=== PATIENT | female | born 1940 | race Caucasian/White ===

== ENCOUNTER → 2017-10-07 | Day surgery (SDC) | payer OTHER ==
[2017-10-05 11:22] VITALS: Ht 167.6 cm; Wt 85.9 kg
[~2017-10-07] VITALS: Ht 167.6 cm; Wt 85.9 kg
[~2017-10-07] MED LIST: 500ML BSS 0.3ML EPI 1:1000PF IRRIG ONE; ACETAMINOPHEN 325 MG TAB PO PRN; AMVISC PLUS 0.8ML SYRINGE INT OCU ONE; ASPI81TA28 PO; ATROPINE SULFATE 0.1 MG/ML 5ML SYR IV PRN; BSS FLUSH ONE; ENDOCOAT 0.85ML SYRINGE INT OCU ONE; EpHEDrine SULFATE INJ 50 MG/ML AMP IV PRN; EpINEphrine INJ 1MG/ML AMP 1 MG/ML AMP ONE; LACTATED RINGER'S 1000ML 500 ML IV SCH; LIDOCAINE 4% OP SOLN DROP CHARGE ONE; LIDOCAINE 4% OP SOLN DROP CHARGE OPL SCH; LIDOCAINE HCL 1% MPF 2 ML VIAL ONE; LISI-461 PO; LOVA40TA4 PO; MIDAZOLAM HCL 1 MG/ML 2ML VIAL ONE; MIX: 4ML BSS 1ML EPI 1:1000 PF TOP ONE; MOXIFLOXACIN OPH SOLN PER DROP CHARGE ONE; POVIDONE-IODINE OP SOLN 30 ML BTL ONE; PROPARACAINE 0.5% OP SOLN PER DROP CHARGE OPL SCH; TOBRAMYCIN/DEXAMETHASONE OPH OINT PER APPLN CHARGE ONE
[2017-10-07] MEDS: TROPICAMIDE 1% OP SOLN PER DROP CHARGE OPL SCH ×3 (11:14→11:21)
[2017-10-07] MEDS: PHENYLEPHRINE HCL 2.5% OP SOLN PER DROP CHARGE OPL SCH ×3 (11:14→11:20)
[2017-10-07] MEDS: CYCLOPENTOLATE HCL 1% OP SOLN PER DROP CHARGE OPL SCH ×3 (11:15→11:22)
[2017-10-07] MEDS: MOXIFLOXACIN OPH SOLN PER DROP CHARGE OPL SCH ×3 (11:16→11:23)
--- NOTE | 2017-10-07 11:22 | History & Physical Bridge - SC ---
H&P Re-Evaluation Bridge Note: I have examined the patient, reviewed the History & Physical and in the interval since the performance of the History & Physical I have noted the following changes of clinical significance: No changes noted
--- NOTE | 2017-10-07 12:33 | [facility] Post Operative Brief Note ---
Immediate Operative Summary Operative Date Oct 07, 2017. Pre-Operative Diagnosis Cataract Left Eye Post-Operative Diagnosis Same Procedure(s) Performed Left Cataract Phacoemulsification With Intraocular Lens Implant Surgeon Dr. Funes [employer] Professional Surgeon(s) None Estimated Blood Loss 0 Findings left cataract Specimens None Complication(s) None Disposition
--- NOTE | 2017-10-07 12:34 | [facility] Operative Report ---
Operative Report Date of Service Oct 07, 2017. Operative Report DATE OF OPERATION: 10/07/17 PREOPERATIVE DIAGNOSIS: Senile nuclear cataract, left eye POSTOPERATIVE DIAGNOSIS: Senile nuclear cataract, left eye PROCEDURE PERFORMED: Phacoemulsification with intraocular lens implantation, left eye SURGEON: Dr. Alofnso Funes ANESTHESIA: Topical with 1% intracameral lidocaine and monitored anesthesia care COMPLICATIONS: None DESCRIPTION OF PROCEDURE: After positively identifying the patient both verbally and by wristband in the preoperative area, the left eye was marked as the operative eye. The patient was then brought back to the operating room by the anesthesia and nursing staff where they were given a drop of Lidocaine and betadine into the operative eye. They were then sterilely prepped and draped in the standard fashion typical for ophthalmic surgery. Steri-strips were placed along the upper eyelids to keep the lashes back, and a lid speculum was placed into the operative eye. At this point, a documented time out was performed with members of the ophthalmology, nursing, and anesthesia staffs all agreeing upon the correct patient, correct location for surgery, correct procedure, and correct type and power of intraocular lens to be implanted. The microscope was then swung into position. First, a paracentesis wound was made using a sideport blade. Then, in sequence, 1% preservative-free lidocaine followed by Endocoat viscoelastic was injected into the anterior chamber. Next , the main incision was made with a keratome blade in triplanar fashion. A sharp cystotome was introduced into the eye and used to create a tear in the anterior capsule, which was directed into a continuous curvilinear capsulorrhexis using Utrata forceps. Hydrodissection was then performed with BSS on a flat-tip cannula. Next, the phacoemulsification handpiece was introduced into the eye and used to remove the nucleus in a [id number] fashion. This was done without complication and then the irrigation-aspiration handpiece was introduced into the eye and used to remove all remaining cortical and epinuclear material. Amvisc was then injected into the anterior chamber as well as into the capsular bag and using the lens injector system, an MX60 25.0 D lens, serial number [id number], and expiration date 05/2020 was injected into the capsular bag and rotated into the correct position. Next, the irrigation- aspiration handpiece was used to remove all remaining Amvisc. BSS was used to hydrate the main wound, and then BSS was injected into the paracentesis site to reach physiologic pressure and then the main wound was checked and found to be watertight. The patient was given drops of Vigamox and Tobradex ointment into the operative eye, and then the surrounding area was cleaned and dried. A clear plastic shield was placed over the eye and the patient was then sat up and taken from the operating room by the anesthesia staff having tolerated the procedure well and suffering no complications. DISPOSITION: The patient was returned to the recovery room in stable condition. I attest to the content of the Intraoperative Record and any orders documented therein. Any exceptions are noted below.
[2017-10-07 12:35] VITALS: TEMP 36.5
--- NOTE | 2017-10-07 12:35 | Discharge Instructions-SurgCtr ---
Discharge Instructions Date of Service Oct 07, 2017. Visit Reason for Visit: Cataract Left Eye Discharge Discharge Diagnosis / Problem: left cataract Discharge Goals Goal(s): Decrease discomfort, Improve function Activity Recommendations Activity Limitations: as noted below Anesthesia . Post Anesthesia Instructions: If you have had General Anesthesia or IV Sedation: * Do not drive today. * Resume driving when surgeon permits. * Do not make important decisions or sign legal documents today. * Call surgeon for: 1. Temperature elevations greater than 101 degrees F. 2. Uncontrollable pain. 3. Excessive bleeding. 4. Persistent nausea and vomiting. 5. Medication intolerance (nausea, vomiting or rash). * For nausea and vomiting use only clear liquids such as: tea, soda, bouillon until nausea subsides, then gradually increase diet as tolerated. * If you have any concerns or questions, call your surgeon's office. If physician is unavailable and it is an emergency, call 911 or go to the nearest emergency room. . Instructions / Follow-Up Instructions / Follow-Up ACTIVITY RECOMMENDATIONS: * Light activities. * You may walk outside, read, watch television. * You may notice redness on the white part of the eye and some blurry vision - this is normal. MEDICATIONS: Resume previous medications unless instructed otherwise by your surgeon. Start all eye drops at 2:30 pm today: * Eye drops (today): Prednisone - one drop in operative eye every 2 hours while awake Ofloxacin- one drop in operative eye every 2 hours while awake Ilevro - one drop in operative eye daily SPECIAL CARE INSTRUCTIONS: * Tape plastic shield over eye to sleep at night. Call your doctor at with any concerns or problems. FOLLOW UP VISIT: Follow-up with Dr Funes at [facility] as scheduled. Diet Recommendations Home Diet: no limitations Procedures Procedures Performed: Left Cataract Phacoemulsification With Intraocular Lens Implant Pending Studies Studies pending at discharge: no Medical Emergencies . Who to Call and When: Medical Emergencies: If at any time you feel your situation is an emergency, please call 911 immediately. . Non-Emergent Contact Non-Emergency issues call your: Surgeon . . "Provider Documentation" section prepared by Alfonso Funes. .
[2017-10-07 13:04] VITALS: BP 159/83; PULSE 56; O2SAT 94
--- NOTE | 2017-10-07 13:17 | Anesthesiology Progress Note ---
Anesthesia Post Op Note Date & Time Oct 07, 2017 at 13:16 Vital Signs Pain Intensity: 0 Vital Signs Past 12 Hours Date Time Temp Pulse Resp B/P (MAP) Pulse Ox O2 Delivery O2 Flow Rate FiO2 10/07/17 13:04 56 18 159/83 (108) 94 Room Air 10/07/17 12:35 36.5 66 16 158/82 (107) 97 Room Air 10/07/17 11:09 36.4 75 16 170/91 (117) 98 Room Air Notes Mental Status: alert / awake / arousable, participated in evaluation Nausea / Vomiting: adequately controlled Pain: adequately controlled Airway Patency, RR, SpO2: stable & adequate BP & HR: stable & adequate Hydration State: stable & adequate Anesthetic Complications: no major complications apparent
== END | disposition home or self-care (01) ==
LOC: X.SURG 10:59
PROVIDERS: ATTEND Ophthalmology
DX: H25.12 Age-related nuclear cataract, left eye (principal); I10 Essential (primary) hypertension; E78.5 Hyperlipidemia, unspecified; E66.9 Obesity, unspecified; Z96.651 Presence of right artificial knee joint

== ENCOUNTER → 2017-10-21 | Day surgery (SDC) | payer OTHER ==
[2017-10-16 09:55] VITALS: Ht 167.6 cm; Wt 85.9 kg
[~2017-10-21] VITALS: Ht 167.6 cm; Wt 85.9 kg
[~2017-10-21] MED LIST changes: +LABETALOL HCL IV 5 MG/ML 20ML IV ONE; -LIDOCAINE 4% OP SOLN DROP CHARGE OPL SCH; +LIDOCAINE 4% OP SOLN DROP CHARGE OPR SCH; -PROPARACAINE 0.5% OP SOLN PER DROP CHARGE OPL SCH; +PROPARACAINE 0.5% OP SOLN PER DROP CHARGE OPR SCH
[2017-10-21] MEDS: PHENYLEPHRINE HCL 2.5% OP SOLN PER DROP CHARGE OPR SCH ×3 (06:37→06:45)
[2017-10-21] MEDS: TROPICAMIDE 1% OP SOLN PER DROP CHARGE OPR SCH ×3 (06:38→06:48)
[2017-10-21] MEDS: CYCLOPENTOLATE HCL 1% OP SOLN PER DROP CHARGE OPR SCH ×3 (06:38→06:48)
[2017-10-21] MEDS: MOXIFLOXACIN OPH SOLN PER DROP CHARGE OPR SCH ×3 (06:39→06:49)
--- NOTE | 2017-10-21 07:29 | [facility] Post Operative Brief Note ---
Immediate Operative Summary Operative Date Oct 21, 2017. Pre-Operative Diagnosis Cataract Right Eye Post-Operative Diagnosis Same Procedure(s) Performed Right Cataract Phacoemulsification With Intraocular Lens Implant Surgeon Dr. Funes Agent Contract Clerk Surgeon(s) None Estimated Blood Loss None Findings right cataract Specimens None Complication(s) None Disposition
[2017-10-21 07:30] VITALS: TEMP 37
--- NOTE | 2017-10-21 07:30 | [facility] Operative Report ---
Operative Report Date of Service Oct 21, 2017. Operative Report DATE OF OPERATION: 10/21/17 PREOPERATIVE DIAGNOSIS: Senile nuclear cataract, right eye POSTOPERATIVE DIAGNOSIS: Senile nuclear cataract, right eye PROCEDURE PERFORMED: Phacoemulsification with intraocular lens implantation, right eye SURGEON: Dr. Alfonso Funes ANESTHESIA: Topical with 1% intracameral lidocaine and monitored anesthesia care COMPLICATIONS: None DESCRIPTION OF PROCEDURE: After positively identifying the patient both verbally and by wristband in the preoperative area, the right eye was marked as the operative eye. The patient was then brought back to the operating room by the anesthesia and nursing staff where they were given a drop of Lidocaine and betadine into the operative eye. They were then sterilely prepped and draped in the standard fashion typical for ophthalmic surgery. Steri-strips were placed along the upper eyelids to keep the lashes back, and a lid speculum was placed into the operative eye. At this point, a documented time out was performed with members of the ophthalmology, nursing, and anesthesia staffs all agreeing upon the correct patient, correct location for surgery, correct procedure, and correct type and power of intraocular lens to be implanted. The microscope was then swung into position. First, a paracentesis wound was made using a sideport blade. Then, in sequence, 1% preservative-free lidocaine followed by Endocoat viscoelastic was injected into the anterior chamber. Next , the main incision was made with a keratome blade in triplanar fashion. A sharp cystotome was introduced into the eye and used to create a tear in the anterior capsule, which was directed into a continuous curvilinear capsulorrhexis using Utrata forceps. Hydrodissection was then performed with BSS on a flat-tip cannula. Next, the phacoemulsification handpiece was introduced into the eye and used to remove the nucleus in a [id number] fashion. This was done without complication and then the irrigation-aspiration handpiece was introduced into the eye and used to remove all remaining cortical and epinuclear material. Amvisc was then injected into the anterior chamber as well as into the capsular bag and using the lens injector system, an MX60 25.5 D lens, serial number [id number], and expiration date 12/2018 was injected into the capsular bag and rotated into the correct position. Next, the irrigation- aspiration handpiece was used to remove all remaining Amvisc. BSS was used to hydrate the main wound, and then BSS was injected into the paracentesis site to reach physiologic pressure and then the main wound was checked and found to be watertight. The patient was given drops of Vigamox and Tobradex ointment into the operative eye, and then the surrounding area was cleaned and dried. A clear plastic shield was placed over the eye and the patient was then sat up and taken from the operating room by the anesthesia staff having tolerated the procedure well and suffering no complications. DISPOSITION: The patient was returned to the recovery room in stable condition. I attest to the content of the Intraoperative Record and any orders documented therein. Any exceptions are noted below.
--- NOTE | 2017-10-21 07:31 | Discharge Instructions-SurgCtr ---
Discharge Instructions Date of Service Oct 21, 2017. Visit Reason for Visit: Cataract Right Eye Discharge Discharge Diagnosis / Problem: right cataract Discharge Goals Goal(s): Decrease discomfort, Improve function Activity Recommendations Activity Limitations: as noted below Anesthesia . Post Anesthesia Instructions: If you have had General Anesthesia or IV Sedation: * Do not drive today. * Resume driving when surgeon permits. * Do not make important decisions or sign legal documents today. * Call surgeon for: 1. Temperature elevations greater than 101 degrees F. 2. Uncontrollable pain. 3. Excessive bleeding. 4. Persistent nausea and vomiting. 5. Medication intolerance (nausea, vomiting or rash). * For nausea and vomiting use only clear liquids such as: tea, soda, bouillon until nausea subsides, then gradually increase diet as tolerated. * If you have any concerns or questions, call your surgeon's office. If physician is unavailable and it is an emergency, call 911 or go to the nearest emergency room. . Instructions / Follow-Up Instructions / Follow-Up ACTIVITY RECOMMENDATIONS: * Light activities. * You may walk outside, read, watch television. * You may notice redness on the white part of the eye and some blurry vision - this is normal. MEDICATIONS: Resume previous medications unless instructed otherwise by your surgeon. Start all eye drops at 9:30 am today: * Eye drops (today): Prednisone - one drop in operative eye every 2 hours while awake Ofloxacin - one drop in operative eye every 2 hours while awake Ilevro - one drop in operative eye daily SPECIAL CARE INSTRUCTIONS: * Tape plastic shield over eye to sleep at night. Call your doctor at with any concerns or problems. FOLLOW UP VISIT: Follow-up with Dr Funes at [facility] as scheduled. Diet Recommendations Home Diet: no limitations Procedures Procedures Performed: Right Cataract Phacoemulsification With Intraocular Lens Implant Pending Studies Studies pending at discharge: no Medical Emergencies . Who to Call and When: Medical Emergencies: If at any time you feel your situation is an emergency, please call 911 immediately. . Non-Emergent Contact Non-Emergency issues call your: Surgeon . . "Provider Documentation" section prepared by Alfonso Funes. .
--- NOTE | 2017-10-21 07:56 | Anesthesia Progress Nt - [facility] ---
Anesthesia Post Op Note Date & Time Oct 21, 2017 at 07:55 Vital Signs Pain Intensity: 4.0 Vital Signs Past 12 Hours Date Time Temp Pulse Resp B/P (MAP) Pulse Ox O2 Delivery O2 Flow Rate FiO2 10/21/17 07:30 37.0 73 16 176/83 (114) 95 Room Air 10/21/17 06:29 36.7 70 16 173/76 (108) 95 Room Air Notes Mental Status: alert / awake / arousable, participated in evaluation Pt Amnestic to Procedure: Yes Nausea / Vomiting: adequately controlled Pain: adequately controlled Airway Patency, RR, SpO2: stable & adequate BP & HR: stable & adequate Hydration State: stable & adequate Anesthetic Complications: no major complications apparent
[2017-10-21 08:03] VITALS: BP 149/70; PULSE 58; O2SAT 97
== END | disposition home or self-care (01) ==
LOC: X.SURG 06:12
PROVIDERS: ATTEND Ophthalmology
DX: H25.11 Age-related nuclear cataract, right eye (principal); E78.5 Hyperlipidemia, unspecified; Z96.659 Presence of unspecified artificial knee joint; Z83.518 Family history of other specified eye disorder; Z87.891 Personal history of nicotine dependence; Z79.82 Long term (current) use of aspirin; Z98.42 Cataract extraction status, left eye

== ENCOUNTER 2021-10-13 17:44 | Inpatient (IN) ==
[2021-10-13] MEDS ORDERED: SODIUM CHLORIDE 0.9% 1000ML 1,000 ML IV STA (18:09)
--- NOTE | 2021-10-13 18:28 | Emergency Department Note ---
Impression & Plan Acute on chronic renal failure, COVID-19, Weakness generalized, Fall ED Provider Note CHIEF COMPLAINT: Weakness, fall HISTORY OF PRESENT ILLNESS: This 81 yo female patient presents to the emergency department with c/o weakness for the last 3-4 days. 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 Her son heard the fall but she laid on the floor for 2 hours per her request. He was able to get up off of the floor and into bed however she felt nauseated and did vomit. Patient states she lives at home with her son and her grandson does spend some time there. He has been feeling ill recently with a cough and upper respiratory illness. Several family members are currently being tested for Covid. Patient has had 2 vaccines, she was not aware of her third shot. Patient denies any urinary symptoms and states the vomiting has resolved. She denies chest pain, shortness of breath. She has not been eating or drinking much fluid recently. Patient denies any head injury during the fall. REVIEW OF SYSTEMS: A review of systems was performed with positives and perti nent negatives listed in the history of present illness. 10 systems were reviewed and are otherwise negative. ALLERGIES: see below MEDICATIONS: see below PMH: see below SOCIAL HISTORY: see below DDx: Infection, dehydration, metabolic abnormality, hypo/hyperglycemia, electrolyte disturbance, anemia, hypoxia, cardiac sources, intracerebral event, toxicologic, neurologic, as well as other pathologies. PHYSICAL EXAM: Vital signs reviewed. General: 81-year-old female in no significant distress. HEENT: No scleral icterus, PERRLA, neck supple. Atraumatic. Cardiovascular: Regular rate and rhythm, no extra sounds. Pulmonary: Coarse breath sounds to auscultation bilaterally, normal work of breathing. Dry cough. Abdomen: Soft, nontender, nondistended, positive bowel sounds. Musculoskeletal: Atraumatic, no peripheral edema. No tenderness palpation over the cervical spine. Neurologic: Patient awake alert and oriented x 3, speech is clear Skin: Warm, dry, no rash EMERGENCY DEPARTMENT COURSE/MDM: No significant distress. IV access was obtained and laboratory work was drawn. Patient was placed on a front desk monitor and noted to be in a normal sinus rhythm. Patient was hydrated with normal saline solution. Chest x-ray was performed and is significant for an elevated right hemidiaphragm, negative for pulmonary infiltrate or failure. Patient has tested positive for COVID-19 and appears to have a worsening renal failure. I suspect she has been ill with Covid for several days and has been worsening, poor p.o. intake. Patient will be admitted to the hospitalist service for further evaluation and management. Patient is aware of the plan and agrees. MONITORING: An order for cardiac monitoring was placed and the patient is noted to be in a NSR at 74 beats per minute. RADIOLOGY: See below EKG: NSR at 68 bpm. LBBB, prolonged QTc at 548. T wave abnl. no PVC, no PAC. DISPOSITION: admit Past Med/Surg History Medical History (Updated 10/20/21 @ 15:37 by Meg Ball MD) Acute worsening of stage 3 chronic kidney disease Anemia Cardiomyopathy Cervical strain Closed head injury Elevated troponin Hip pain Hyperlipidemia Hypertension Social History Smoking Status: Former smoker Second Hand Exposure: Yes; Hx Alcohol Use: No Hx Substance Use: No Preferred Language: Mohawk Communication Ability: Effective [employer] Security Administrator Required: No Beliefs That Will Affect Care: None marital status: / Current Living Situation: Family Current Living Situation Comment: lives with son Feels Safe at Home: Yes Assistive Devices: Cane Allergies Allergies Allergy/AdvReac Type Severity Reaction Status Date / Time No Known Allergies Allergy Unknown Verified 10/13/21 18:42 Home Meds Home Medications Medication Instructions Recorded Confirmed aspirin 81 mg tablet,delayed 81 mg PO DAILY 10/13/21 10/13/21 release (Aspirin Low Dose) lisinopril 10 1 tab PO DAILY 10/13/21 10/13/21 mg-hydrochlorothiazide 12.5 mg tablet lovastatin 40 mg tablet 40 mg PO DAILY 10/13/21 10/13/21 potassium citrate 10 mEq (1,080 20 meq PO DAILY 10/13/21 10/13/21 mg) tablet,extended release Results & Data (ED) Vital Signs Vital Signs - 24 hr 10/13/21 18:05 Temperature 36.8 C Temperature Source Oral Pulse Rate 74 Pulse Rate [Apical] 74 Pulse Rhythm Regular Pulse Strength Normal Respiratory Rate 29 H Respiratory Effort / Characteristics Labored Respiratory Depth Normal Respiratory Pattern Regular Blood Pressure 179/87 H Blood Pressure [Right Arm] 179/87 H Blood Pressure Mean 117 Blood Pressure Mean [Right Arm] 117 Blood Pressure Position Sitting Blood Pressure Position [Right Arm] Sitting Pulse Oximetry 97 Oxygen Delivery Method Room Air Sepsis Recent Fever Within 48 Hours No Sepsis New/Unexplained Change in Mental Status No Sepsis Action Taken by Nursing No Action Required Home Medications Current Medication List: was personally reviewed by me Laboratory Data Attestation: I reviewed the patient's lab results. Result diagrams: 10/15/21 05:57 10/15/21 05:57 Lab Results 10/13/21 10/13/21 10/13/21 Range/Units 18:15 18:15 18:40 WBC 3.26 L (4.8-10.8) K/uL RBC 4.07 L (4.2-5.4) M/uL Hgb 12.2 (12.0-16.0) g/dL Hct 36.0 L (37-47) % MCV 88.5 (80-100) fL MCH 30.0 (25-34) pg MCHC 33.9 (32-36) g/dL RDW Std Deviation 41.8 (36.4-46.3) fL RDW Coeff of Samra 12.9 (11.5-14.5) % Plt Count 221 (130-400) K/uL MPV 10.2 (7.4-10.4) fL Immature Gran % (Auto) 0.0 % Neut % (Auto) 42.7 % Lymph % (Auto) 41.4 % [place] % (Auto) 14.4 % Eos % (Auto) 1.2 % Baso % (Auto) 0.3 % Neut # (Auto) 1.39 L (1.4-6.5) K/uL Lymph # (Auto) 1.35 (1.2-3.4) K/uL [place] # (Auto) 0.47 (0.11-0.59) K/uL Eos # (Auto) 0.04 (0-0.5) K/uL Baso # (Auto) 0.01 (0-0.2) K/uL Immature Gran # (Auto) 0.00 (0.00-0.02) K/uL Sodium 136 (136-145) mmol/L Potassium 4.4 (3.5-5.1) mmol/L Chloride 101 (98-107) mmol/L Carbon Dioxide 25 (21-32) mmol/L Anion Gap 10.0 (3-11) BUN 38 H (7-18) mg/dl Creatinine 1.86 H (0.6-1.2) mg/dl Est Cr Clr Drug Dosing 26.0 ml/min Est GFR ( Amer) 29.1 ml/min Est GFR (Non-Af Amer) 25.1 ml/min BUN/Creatinine Ratio 20.5 H (10-20) Glucose 102 H (70-99) mg/dl Lactate (0.4-2.0) mmol/L Calcium 9.4 (8.5-10.1) mg/dl Total Bilirubin 0.5 (0.2-1) mg/dl AST 24 (15-37) U/L ALT 21 (12-78) Alkaline Phosphatase 87 (45-117) U/L Troponin I < 0.015 (0-0.045) ng/ml Total Protein 7.9 (6.4-8.2) gm/dl Albumin 3.6 (3.4-5.0) gm/dl Globulin 4.3 H (2.5-4.0) gm/dl Albumin/Globulin Ratio 0.8 L (0.9-2) SARS-CoV-2 (PCR) POSITIVE A* (Negative) Influenza Type A (PCR) Negative (Neg) Influenza Type B (PCR) Negative (Neg) RSV (RT-PCR) Negative (Neg) 10/13/21 Range/Units 19:05 WBC (4.8-10.8) K/uL RBC (4.2-5.4) M/uL Hgb (12.0-16.0) g/dL Hct (37-47) % MCV (80-100) fL MCH (25-34) pg MCHC (32-36) g/dL RDW Std Deviation (36.4-46.3) fL RDW Coeff of Samra (11.5-14.5) % Plt Count (130-400) K/uL MPV (7.4-10.4) fL Immature Gran % (Auto) % Neut % (Auto) % Lymph % (Auto) % [place] % (Auto) % Eos % (Auto) % Baso % (Auto) % Neut # (Auto) (1.4-6.5) K/uL Lymph # (Auto) (1.2-3.4) K/uL [place] # (Auto) (0.11-0.59) K/uL Eos # (Auto) (0-0.5) K/uL Baso # (Auto) (0-0.2) K/uL Immature Gran # (Auto) (0.00-0.02) K/uL Sodium (136-145) mmol/L Potassium (3.5-5.1) mmol/L Chloride (98-107) mmol/L Carbon Dioxide (21-32) mmol/L Anion Gap (3-11) BUN (7-18) mg/dl Creatinine (0.6-1.2) mg/dl Est Cr Clr Drug Dosing ml/min Est GFR ( Amer) ml/min Est GFR (Non-Af Amer) ml/min BUN/Creatinine Ratio (10-20) Glucose (70-99) mg/dl Lactate 0.7 (0.4-2.0) mmol/L Calcium (8.5-10.1) mg/dl Total Bilirubin (0.2-1) mg/dl AST (15-37) U/L ALT (12-78) Alkaline Phosphatase (45-117) U/L Troponin I (0-0.045) ng/ml Total Protein (6.4-8.2) gm/dl Albumin (3.4-5.0) gm/dl Globulin (2.5-4.0) gm/dl Albumin/Globulin Ratio (0.9-2) SARS-CoV-2 (PCR) (Negative) Influenza Type A (PCR) (Neg) Influenza Type B (PCR) (Neg) RSV (RT-PCR) (Neg) Administered Medications Discontinued Medications Acetaminophen (Acetaminophen 325 Mg Tab) 650 mg PO Q4H PRN PRN Reason: Pain or Fever Stop: 11/12/21 23:28 Last Admin: 10/14/21 13:45 Dose: 650 mg Documented by: [id number] Aspirin (Aspirin 81 Mg Ectab) 81 mg PO DAILY [facility] Stop: 11/13/21 08:59 Last Admin: 10/15/21 08:10 Dose: 81 mg Documented by: [id number] Admin: 10/14/21 07:53 Dose: 81 mg Documented by: [id number] Enoxaparin Sodium (Enoxaparin Inj 30 Mg/0.3 Ml Syr) 30 mg SQ HS [facility] Stop: 11/12/21 23:44 Last Admin: 10/14/21 20:16 Dose: 30 mg Documented by: [id number] Admin: 10/14/21 01:23 Dose: 30 mg Documented by: [id number] Sodium Chloride (Nss 1000ml) 1,000 mls @ 100 mls/hr IV .Q10H STA Stop: 10/14/21 04:08 Last Infusion: 10/14/21 01:22 Dose: 0 mls/hr Documented by: [id number] Admin: 10/13/21 18:43 Dose: 100 mls/hr Documented by: [id number] Dextrose/Sodium Chloride (D5w And Nss) 1,000 mls @ 80 mls/hr IV .[id number] [facility] Stop: 11/12/21 23:28 Last Infusion: 10/14/21 13:40 Dose: 0 mls/hr Documented by: [id number] Infusion: 10/14/21 11:26 Dose: 80 mls/hr Documented by: [id number] Admin: 10/14/21 11:26 Dose: 100 mls/hr Documented by: [id number] Infusion: 10/14/21 11:16 Dose: 100 mls/hr Documented by: [id number] Admin: 10/14/21 01:16 Dose: 100 mls/hr Documented by: [id number] Magnesium Sulfate/Dextrose (Magnesium Sulfate / D5w) 1 gm in 100 mls @ 50 mls/hr IV ONE ONE Stop: 10/14/21 11:14 Last Infusion: 10/14/21 12:10 Dose: 0 mls/hr Documented by: [id number] Admin: 10/14/21 10:07 Dose: 50 mls/hr Documented by: [id number] Lovastatin (Lovastatin 20 Mg Tab) 40 mg PO DAILY [facility] Stop: 11/13/21 08:59 Last Admin: 10/15/21 08:11 Dose: 40 mg Documented by: [id number] Admin: 10/14/21 07:52 Dose: 40 mg Documented by: [id number] Potassium Citrate (Potassium Citrate 10 Meq Tab) 20 meq PO DAILY [facility] Stop: 11/13/21 08:59 Last Admin: 10/15/21 08:10 Dose: 20 meq Documented by: [id number] Admin: 10/14/21 07:53 Dose: 20 meq Documented by: [id number] Imaging Data Radiologist's Impression: Chest X-Ray 10/13/21 18:09 XR chest 1V portable CLINICAL HISTORY: Fever. COMPARISON STUDY: 12/21/2007 TECHNIQUE: 1 view of the chest FINDINGS: Single frontal view of the chest demonstrates the cardiomediastinal silhouette to be within normal limits. The lungs are clear of alveolar opacities. There is no evidence for pleural effusion. There is no evidence for vascular congestion. There is no acute osseous pathology. IMPRESSION: No acute cardiopulmonary disease. ACT 112: Negative or not required by law. Electronically signed by: Mack Lyons M.D. 10/13/2021 6:43 PM Blood Pressure Blood Pressure Findings: Normal blood pressure Blood Pressure Disposition: did not require urgent referral Discharge Plan Visit Data Chief Complaint: Illness Stated Complaint: Weakness, Hypertension ED Provider: Meg Ball Discharge Problem: Acute on chronic renal failure, COVID-19, Weakness generalized, Fall Patient Disposition: Admitted As Inpatient Condition: Good Discharge Instructions Interventions: ED Discharge Assessment Last Done: 10/13/21 22:58 Discharge Problem: Acute on chronic renal failure Qualifiers: Acute renal failure type: unspecified Chronic kidney disease stage: stage 4 (severe) Qualified Code(s): N17.9 - Acute kidney failure, unspecified Fall Qualifiers: Encounter type: initial encounter Qualified Code(s): W19.XXXA - Unspecified fall, initial encounter
[2021-10-13 18:30] LABS: Basophils # (auto) 0.01 K/uL (0-0.2); Basophils % (auto) 0.3 %; Eosinophils # (auto) 0.04 K/uL (0-0.5); Eosinophils % (auto) 1.2 %; Hemoglobin 12.2 g/dL (12.0-16.0); Lymphocytes # (auto) 1.35 K/uL (1.2-3.4); Lymphocytes % (auto) 41.4 %; Mean Corpuscular Hgb Conc 33.9 g/dL (32-36); Mean Corpuscular Volume 88.5 fL (80-100); Mean Platelet Volume 10.2 fL (7.4-10.4); Monocytes # (auto) 0.47 K/uL (0.11-0.59); Monocytes % (auto) 14.4 %; Neutrophils # (auto) 1.39 K/uL (1.4-6.5); Neutrophils % (auto) 42.7 %; Platelet Count 221 K/uL (130-400); RDW Coefficient of Variation 12.9 % (11.5-14.5); RDW Standard Deviation 41.8 fL (36.4-46.3); Red Blood Count 4.07 M/uL (4.2-5.4); White Blood Count 3.26 K/uL (4.8-10.8)
--- NOTE | 2021-10-13 18:45 | XRay Report ---
XR chest 1V portable CLINICAL HISTORY: Fever. COMPARISON STUDY: 12/21/2007 TECHNIQUE: 1 view of the chest FINDINGS: Single frontal view of the chest demonstrates the cardiomediastinal silhouette to be within normal li mits. The lungs are clear of alveolar opacities. There is no evidence for pleural effusion. There is no evidence for vascular congestion. There is no acute osseous pathology. IMPRESSION: No acute cardiopulmonary disease. ACT 112: Negative or not required by law. Electronically signed by: Mack Lyons M.D. 10/13/2021 6:43 PM
[2021-10-13 18:48] LABS: Alanine Aminotransferase 21 (12-78); Albumin Level 3.6 gm/dl (3.4-5.0); Aspartate Aminotransferase 24 U/L (15-37); BUN Creatinine Ratio 20.5 (10-20); Blood Urea Nitrogen 38 mg/dl (7-18); Calcium 9.4 mg/dl (8.5-10.1); Carbon Dioxide 25 mmol/L (21-32); Chloride 101 mmol/L (98-107); Est GFR (African American) 29.1 ml/min; Est GFR (Non-African American) 25.1 ml/min; Glucose 102 mg/dl (70-99); Potassium 4.4 mmol/L (3.5-5.1); Sodium 136 mmol/L (136-145)
[2021-10-13 18:53] LABS: Albumin Globulin Ratio 0.8 (0.9-2); Alkaline Phosphatase 87 U/L (45-117); Bilirubin,Total 0.5 mg/dl (0.2-1); Globulin 4.3 gm/dl (2.5-4.0); Total Protein 7.9 gm/dl (6.4-8.2); Troponin I < 0.015 ng/ml (0-0.045)
[2021-10-13 19:28] LABS: Influenza A virus by PCR Negative (Neg); Influenza B virus by PCR Negative (Neg); RSV by PCR Negative (Neg)
[2021-10-13 19:52] LABS: SARS CoV2 RNA(COVID-19) InHosp POSITIVE (Negative)
[2021-10-13] MEDS ORDERED: ONDANSETRON INJ 2 MG/ML 2 ML VIAL IV PRN (23:29)
[2021-10-13] MEDS ORDERED: NITROGLYCERIN SL 0.4 MG/TAB TAB SL PRN (23:29)
[2021-10-13] MEDS ORDERED: ACETAMINOPHEN 325 MG TAB PO PRN (23:29)
[2021-10-13] MEDS ORDERED: hydrALAZINE HCL 20 MG/ML VIAL IV PRN (23:29)
--- NOTE | 2021-10-14 01:01 | History and Physical Report ---
DATE OF ADMISSION: 10/13/2021. CHIEF COMPLAINT: Syncope. COVID-19. HISTORY OF PRESENT ILLNESS: This is an 81-year-old female with past medical history significant for hyperlipidemia, hypertension, left bundle-branch block, chronic kidney disease stage III, history of TIA, history of vasovagal near syncope, who presents with episode of syncope. The patient is having diarrhea since last . Since last Thursday, he is having some cough and appetite is down. Denies any chest pain, no shortness of breath. She was going to bathroom today and she fell down, she does not know how long she stayed there, but when she woke up, she was alert and awake, not confused. Son lives with her. After the incident she started feeling very weak and tired, nauseous and dizzy, so she came to the ER. Here, her COVID came back positive. She is vaccinated twice with [employer], last dose was in January. Creatinine is 1.8, baseline is 1.4- 1.5. She is afebrile, saturating okay. Chest x-ray was okay. Denies any headache. No blurred visions. Currently, no earache. Some mild runny nose, mild sore throat, no difficulty swallowing. No chest pain, no shortness of breath, no abdominal pain. Normal bladder movements. No swelling in the legs, no rash. ALLERGIES: No known drug allergies. PAST MEDICAL HISTORY: As mentioned above. PAST SURGICAL HISTORY: EMGs on extremity. MEDICATIONS: The patient is on aspirin 81 mg p.o. daily, lisinopril/hydrochlorothiazide 10/12.5 mg p.o. daily, lovastatin 40 mg p.o. daily, potassium citrate 20 mEq p.o. daily. FAMILY HISTORY: Significant for father had prostate and liver cancer and [place], hypertension, and TB. SOCIAL HISTORY: , grandson lives with her. Former smoker, smoked 0.3 packs a day for 15 years, quit in 2004. No alcohol use. No drug use. REVIEW OF SYSTEMS: As per HPI. Rest of review of systems is negative. PHYSICAL EXAMINATION: GENERAL: The patient is of moderate build, not in acute distress. VITAL SIGNS: Temperature 36.8, pulse 68, respiratory rate 17, blood pressure 161/65, oxygen 96% on room air. HEENT: Pupils equal, round and reactive to light. Oral mucosa moist. NECK: No JVD, no neck masses. CARDIOVASCULAR: S1 and S2 heard. Regular rate and rhythm. No murmur, no gallop. RESPIRATORY SYSTEM: Normal AP diameter. No accessory muscle use. No wheezing, no crackles. ABDOMEN: Soft, bowel sounds present, nontender, no distention. CENTRAL NERVOUS SYSTEM: Cranial nerves II-XII grossly intact, nonfocal. EXTREMITIES: No edema, no erythema. LABORATORY DATA: WBC 3.2, hemoglobin 12.2, hematocrit 36, platelets 221. Sodium 136, potassium 4.4, chloride 101, bicarbonate 25, BUN 38, creatinine 1.8, serum glucose 102. Lactate 0.7, calcium 9.4, total bilirubin 0.5, AST 24, ALT 21, alkaline phosphatase 87. Troponin I less than 0.015. SARS-CoV-2 PCR negative. Influenza A and B PCR negative. RSV PCR negative. IMAGING DATA: Chest x-ray, no acute cardiopulmonary disease. EKG: Normal sinus rhythm at a rate of 70, left axis deviation, left bundle- branch block. ASSESSMENT AND PLAN: This is an 81-year-old female who presents with syncope and was found to be COVID positive. 1. Syncope: The patient has a history of vasovagal syncope . Possible related to diarrhea from last . Will check for orthostatics. Will give fluids. Monitor in the tele. Will get echocardiogram. Repeat cardiac enzymes in a.m. and monitor in the tele.Follow echo. 2. COVID-19: The patient is vaccinated with Pf[employer], two doses, last dose in January. Currently, asymptomatic except for diarrhea and weakness. She is saturating okay. Does not meet any criteria for any treatment. Will monitor. 3. Acute kidney injury on chronic kidney disease stage III: Baseline creatinine 1.4-1.5, presently creatinine of 1.8. Holding lisinopril/hydrochlorothiazide. Getting fluids. Monitor labs in a.m. 4. Hyperlipidemia: Continue statin. 5. Hypertension: Holding lisinopril/hydrochlorothiazide. Will place on IV hydralazine for now. 6. Deep venous thrombosis prophylaxis: Lovenox. DISPOSITION: Monitor in the med tele. PT/OT prior to discharge. Social service to help with discharge planning. Level 1 full code. Job ID: [id number] [facility]
[2021-10-14] MEDS: D5W AND NSS 1,000 ML IV SCH ×2 (01:16→11:26)
[2021-10-14] MEDS: ENOXAPARIN INJ 30 MG/0.3 ML SYR SQ SCH ×2 (01:23→20:16)
[2021-10-14 06:34] LABS: Basophils # (auto) 0.01 K/uL (0-0.2); Basophils % (auto) 0.4 %; Eosinophils # (auto) 0.06 K/uL (0-0.5); Eosinophils % (auto) 2.2 %; Hematocrit (blood only) 29.1 % (37-47); Hemoglobin 9.6 g/dL (12.0-16.0); Immature Granulocytes # (auto) 0.01 K/uL (0.00-0.02); Immature Granulocytes % (auto) 0.4 %; Lymphocytes # (auto) 0.94 K/uL (1.2-3.4); Lymphocytes % (auto) 35.2 %; Mean Corpuscular Hemoglobin 29.8 pg (25-34); Mean Corpuscular Volume 90.4 fL (80-100); Mean Platelet Volume 10.2 fL (7.4-10.4); Monocytes # (auto) 0.39 K/uL (0.11-0.59); Monocytes % (auto) 14.6 %; Neutrophils # (auto) 1.26 K/uL (1.4-6.5); Neutrophils % (auto) 47.2 %; Platelet Count 176 K/uL (130-400); RDW Coefficient of Variation 12.9 % (11.5-14.5); RDW Standard Deviation 42.9 fL (36.4-46.3); Red Blood Count 3.22 M/uL (4.2-5.4); White Blood Count 2.67 K/uL (4.8-10.8)
--- NOTE | 2021-10-14 07:01 | Hospitalist Progress Note ---
Date of Service October 14, 2021 Assessment & Plan (1) Syncope: (2) Diarrhea: (3) Elevated troponin: (4) COVID-19: Plan: This is an 81 yo female who presents with syncope (had diarrhea), JEANNE, and was found to be COVID positive, and have elev. troponin. 1. Syncope: The patient has a history of vasovagal syncope . Possibly related to diarrhea from last . Check orthostatics. Received fluids. Monitor in the tele. Initial troponin in ED negative however troponin this morning 0.8 Repeat troponin Pt has hx of LBBB Will get echocardiogram. Patient reports no chest pain, will further discuss with cardiology 2. COVID-19: The patient is vaccinated with [employer], two doses, last dose in January. Currently, asymptomatic except for diarrhea and weakness. She is saturating well on RA. Does not meet any criteria for any treatment. Will monitor. 3. Acute kidney injury on chronic kidney disease stage III: Baseline creatinine 1.4-1.5 On admission, creatinine of 1.8. Now improved after IVF. Holding lisinopril/hydrochlorothiazide. Monitor renal function. 4. Anemia Admission hemoglobin above 12, now hemoglobin 9.6 Possibly dilutional We will repeat H&H Obtain FOBT, patient denies any blood in the stool Continue to closely monitor 5. Diarrhea -Patient had diarrhea on , then she says it improved, and then had episode again yesterday, during that episode patient syncopized - obtain stool study and c.diff -No bowel movement since being in the hospital 6. Hyperlipidemia: Continue statin. 7. Hypertension: Holding lisinopril/hydrochlorothiazide. Will place on IV hydralazine for now. DVT prophylaxis: Lovenox. DISPOSITION: Monitor in the med tele. PT/OT prior to discharge. Social service to help with discharge planning. Full code. Admission and Anticipated Discharge Date Admission Date: October 13, 2021 Subjective Patient seen in follow-up of syncope, diarrhea, found to be COVID-19 positive Hemoglobin down this morning, FOBT ordered, repeat stat H&H ordered Received IV fluids, creatinine now improved Troponin negative in ED, however now 0.8 this morning Patient is currently sitting up in bed, in no acute distress She is breathing comfortably on room air denies any chest pain No nausea vomiting, no significant abdominal pain. She did not have any bowel movement yet since coming to the hospital. Review of Systems Review of Systems: All systems reviewed & are unremarkable except as noted in Subjective Physical Exam Physical Exam: GENERAL: The patient is of moderate build, not in acute distress. HEENT: NC/AT. EOMI. Pupils equal, round and reactive to light. Oral mucosa moist. NECK: No JVD, no neck masses. CARDIOVASCULAR: S1 and S2 heard. Regular rate and rhythm. No murmur, no gallop. No lower extremity edema. RESPIRATORY: Normal AP diameter. No accessory muscle use. No wheezing, no crackles. ABDOMEN: Soft, bowel sounds present, nontender, no distention. NEURO:Alert oriented answering questions appropriately. Speech fluent, no f acial asymmetry, moves extremities EXTREMITIES: No edema, no erythema. Results & Data Results & Data ([facility]) Vital Signs (Past 12 Hours) Vital Signs Temp Pulse Pulse Resp BP BP Pulse Ox 10/14/21 03:15 36.5 C 63 18 115/58 L 98 10/14/21 00:06 36.4 C L 62 18 137/70 99 10/13/21 23:45 63 10/13/21 22:30 68 20 150/59 H 96 10/13/21 22:00 68 17 161/65 H 96 10/13/21 21:00 72 16 156/65 H 97 10/13/21 19:30 66 18 152/79 H 95 10/13/21 19:00 68 18 158/63 H 96 Laboratory Results 10/14/21 10/14/21 10/13/21 Range/Units 05:30 05:30 19:05 WBC 2.67 L (4.8-10.8) K/uL RBC 3.22 L (4.2-5.4) M/uL Hgb 9.6 L (12.0-16.0) g/dL Hct 29.1 L (37-47) % MCV 90.4 (80-100) fL MCH 29.8 (25-34) pg MCHC 33.0 (32-36) g/dL RDW Std Deviation 42.9 (36.4-46.3) fL RDW Coeff of Samra 12.9 (11.5-14.5) % Plt Count 176 (130-400) K/uL MPV 10.2 (7.4-10.4) fL Immature Gran % (Auto) 0.4 % Neut % (Auto) 47.2 % Lymph % (Auto) 35.2 % [place] % (Auto) 14.6 % Eos % (Auto) 2.2 % Baso % (Auto) 0.4 % Neut # (Auto) 1.26 L (1.4-6.5) K/uL Lymph # (Auto) 0.94 L (1.2-3.4) K/uL [place] # (Auto) 0.39 (0.11-0.59) K/uL Eos # (Auto) 0.06 (0-0.5) K/uL Baso # (Auto) 0.01 (0-0.2) K/uL Immature Gran # (Auto) 0.01 (0.00-0.02) K/uL Sodium Pending (136-145) mmol/L Potassium Pending (3.5-5.1) mmol/L Chloride Pending (98-107) mmol/L Carbon Dioxide Pending (21-32) mmol/L Anion Gap Pending (3-11) BUN Pending (7-18) mg/dl Creatinine Pending (0.6-1.2) mg/dl Est Cr Clr Drug Dosing Pending ml/min Est GFR ( Amer) Pending ml/min Est GFR (Non-Af Amer) Pending ml/min BUN/Creatinine Ratio Pending (10-20) Glucose Pending (70-99) mg/dl Lactate 0.7 (0.4-2.0) mmol/L Calcium Pending (8.5-10.1) mg/dl Magnesium Pending Total Bilirubin (0.2-1) mg/dl AST (15-37) U/L ALT (12-78) Alkaline Phosphatase (45-117) U/L Troponin I Pending (0-0.045) ng/ml Total Protein (6.4-8.2) gm/dl Albumin (3.4-5.0) gm/dl Globulin (2.5-4.0) gm/dl Albumin/Globulin Ratio (0.9-2) SARS-CoV-2 (PCR) (Negative) Influenza Type A (PCR) (Neg) Influenza Type B (PCR) (Neg) RSV (RT-PCR) (Neg) 10/13/21 10/13/2110/13/21 Range/Units 18:40 18:15 18:15 WBC 3.26 L (4.8-10.8) K/uL RBC 4.07 L (4.2-5.4) M/uL Hgb 12.2 (12.0-16.0) g/dL Hct 36.0 L (37-47) % MCV 88.5 (80-100) fL MCH 30.0 (25-34) pg MCHC 33.9 (32-36) g/dL RDW Std Deviation 41.8 (36.4-46.3) fL RDW Coeff of Samra 12.9 (11.5-14.5) % Plt Count 221 (130-400) K/uL MPV 10.2 (7.4-10.4) fL Immature Gran % (Auto) 0.0 % Neut % (Auto) 42.7 % Lymph % (Auto) 41.4 % [place] % (Auto) 14.4 % Eos % (Auto) 1.2 % Baso % (Auto) 0.3 % Neut # (Auto) 1.39 L (1.4-6.5) K/uL Lymph # (Auto) 1.35 (1.2-3.4) K/uL [place] # (Auto) 0.47 (0.11-0.59) K/uL Eos # (Auto) 0.04 (0-0.5) K/uL Baso # (Auto) 0.01 (0-0.2) K/uL Immature Gran # (Auto) 0.00 (0.00-0.02) K/uL Sodium 136 (136-145) mmol/L Potassium 4.4 (3.5-5.1) mmol/L Chloride 101 (98-107) mmol/L Carbon Dioxide 25 (21-32) mmol/L Anion Gap 10.0 (3-11) BUN 38 H (7-18) mg/dl Creatinine 1.86 H (0.6-1.2) mg/dl Est Cr Clr Drug Dosing 26.0 ml/min Est GFR ( Amer) 29.1 ml/min Est GFR (Non-Af Amer) 25.1 ml/min BUN/Creatinine Ratio 20.5 H (10-20) Glucose 102 H (70-99) mg/dl Lactate (0.4-2.0) mmol/L Calcium 9.4 (8.5-10.1) mg/dl Magnesium Total Bilirubin 0.5 (0.2-1) mg/dl AST 24 (15-37) U/L ALT 21 (12-78) Alkaline Phosphatase 87 (45-117) U/L Troponin I < 0.015 (0-0.045) ng/ml Total Protein 7.9 (6.4-8.2) gm/dl Albumin 3.6 (3.4-5.0) gm/dl Globulin 4.3 H (2.5-4.0) gm/dl Albumin/Globulin Ratio 0.8 L (0.9-2) SARS-CoV-2 (PCR) POSITIVE A* (Negative) Influenza Type A (PCR) Negative (Neg) Influenza Type B (PCR) Negative (Neg) RSV (RT-PCR) Negative (Neg) Medications Administered Current Inpatient Medications Acetaminophen (Acetaminophen 325 Mg Tab) 650 mg PO Q4H PRN PRN Reason: Pain or Fever Stop: 11/12/21 23:28 Aspirin (Aspirin 81 Mg Ectab) 81 mg PO DAILY [facility] Stop: 11/13/21 08:59 Enoxaparin Sodium (Enoxaparin Inj 30 Mg/0.3 Ml Syr) 30 mg SQ HS [facility] Stop: 11/12/21 23:44 Last Admin: 10/14/21 01:23 Dose: 30 mg Documented by: Hydralazine HCl (Hydralazine Hcl 20 Mg/Ml Vial) 5 mg IV Q6H PRN PRN Reason: Hypertension Stop: 11/12/21 23:28 Dextrose/Sodium Chloride (D5w And Nss) 1,000 mls @ 100 mls/hr IV .Q10H [facility] Stop: 11/12/21 23:28 Last Admin: 10/14/21 01:16 Dose: 100 mls/hr Documented by: Lovastatin (Lovastatin 20 Mg Tab) 40 mg PO DAILY [facility] Stop: 11/13/21 08:59 Nitroglycerin (Nitroglycerin Sl 0.4 Mg/Tab Tab) 0.4 mg SL UD PRN PRN Reason: Chest Pain Stop: 11/12/21 23:28 Ondansetron HCl (Ondansetron Inj 2 Mg/Ml 2 Ml Vial) 4 mg IV Q6H PRN PRN Reason: Nausea Stop: 11/12/21 23:28 Potassium Citrate (Potassium Citrate 10 Meq Tab) 20 meq PO DAILY [facility] Stop: 11/13/21 08:59
[2021-10-14 07:08] LABS: BUN Creatinine Ratio 21.8 (10-20); Calcium 7.9 mg/dl (8.5-10.1); Creatinine Clr Calc Pharmacy 30.9 ml/min; Est GFR (African American) 36.6 ml/min; Est GFR (Non-African American) 31.5 ml/min; Magnesium 1.6 mg/dl (1.8-2.4); Troponin I 0.847 ng/ml (0-0.045)
--- NOTE | 2021-10-14 07:47 | Electrocardiogram Report ---
Test Reason : Blood Pressure : / mmHG Vent. Rate : 070 BPM Atrial Rate : 070 BPM P-R Int : 178 ms QRS Dur : 154 ms QT Int : 434 ms P-R-T Axes : 053 -36 118 degrees QTc Int : 468 ms Normal sinus rhythm Left axis deviation Left bundle branch block Abnormal ECG When compared with ECG of 08-JAN-2015 12:30, Left bundle branch block is now Present Confirmed by Josesito Crowe ([id number]) on 10/14/2021 7:47:21 AM Referred By: REFERRED SELF Confirmed By:Genaro Crowe
[2021-10-14] MEDS: LOVASTATIN 20 MG TAB PO SCH (07:52)
--- NOTE | 2021-10-14 07:52 | Electrocardiogram Report ---
Test Reason : Blood Pressure : / mmHG Vent. Rate : 067 BPM Atrial Rate : 067 BPM P-R Int : 184 ms QRS Dur : 152 ms QT Int : 444 ms P-R-T Axes : 059 -28 132 degrees QTc Int : 469 ms Normal sinus rhythm Left bundle branch block Abnormal ECG When compared with ECG of 13-OCT-2021 18:05, T wave inversion more evident in Lateral leads Confirmed by Josesito Crowe ([id number]) on 10/15/2021 5:41:37 PM Referred By: REFERRED SELF Confirmed By:Genaro Crowe
[2021-10-14] MEDS: ASPIRIN 81 MG ECTAB PO SCH (07:53)
[2021-10-14] MEDS: POTASSIUM CITRATE 10 MEQ TAB PO SCH (07:53)
[2021-10-14] MEDS ORDERED: MAGNESIUM SULFATE / D5W 1 GM/100 ML BAG IV ONE (09:15)
[2021-10-14 10:16] LABS: Hematocrit (blood only) 27.7 % (37-47); Hemoglobin 9.3 g/dL (12.0-16.0)
--- NOTE | 2021-10-14 10:43 | Cardiology Consultation ---
Date of Consultation October 14, 2021 Assessment & Plan (1) Cardiomyopathy: (2) COVID-19: (3) Elevated troponin: (4) Diarrhea: (5) Syncope: (6) Hypertension: (7) Hyperlipidemia: Again the results of the echocardiogram were reviewed with the patient and her daughter by phone. Given her lack of cardiac symptoms and the fact that her minimal troponin elevation is already trending downwards I do not believe this new finding of cardiomyopathy represents an acute ischemic event. The apical ballooning pattern on echocardiogram is highly suggestive of catecholamine induced cardiomyopathy which would fit the clinical picture of several days to weeks of illness and diarrhea. I believe the most prudent course of action at this point would be to hold off on further cardiac testing, cardiac catheterization contraindicated in the setting of active COVID-19 infection and lack of acute symptoms. Recommend maintaining current medications, ideally would like to add beta- wero, however, her relative bradycardia/hypotension would preclude this at this time. Would recommend repeat echocardiogram as an outpatient in 1 month and follow-up with cardiology afterwards. Okay to discharge from a cardiac standpoint. History of Present Illness Reason for Consultation: Syncope Requesting Physician: Dr. Mendoza Attending Physician: Maxwell Mendoza MD History of Present Illness The patient is a very pleasant 81-year-old woman who presented to [facility] on 10/13/2021 with reports of a syncopal episode. She states that she is been having diarrhea for several days along with a nonproductive cough and anorexia. She was ambulating to the bathroom when she fell and is unsure how long she was down for. She was found by her son and she reported feeling very weak, tired, nauseated and dizzy so she was brought in the emergency department. Upon arrival she tested positive for COVID-19. I spoke with the patient by phone, she denies any recent episodes of chest pain or significant shortness of breath. Allergies Allergy/AdvReac Type Severity Reaction Status Date / Time No Known Allergies Allergy Unknown Verified 10/13/21 18:42 Home Medications Medication Instructions Recorded Confirmed Type aspirin 81 mg tablet,delayed 81 mg PO DAILY 10/13/21 10/13/21 History release (Aspirin Low Dose) lisinopril 10 1 tab PO DAILY 10/13/21 10/13/21 History mg-hydrochlorothiazide 12.5 mg tablet lovastatin 40 mg tablet 40 mg PO DAILY 10/13/21 10/13/21 History potassium citrate 10 mEq (1,080 20 meq PO DAILY 10/13/21 10/13/21 History mg) tablet,extended release Patient History Social History Smoking Status: Former smoker Second Hand Exposure: Yes; Hx Alcohol Use: No Hx Substance Use: No Preferred Language: Sinhala Communication Ability: Effective Culinary Artist Required: No Beliefs That Will Affect Care: None marital status: / Current Living Situation: Family Current Living Situation Comment: lives with son Feels Safe at Home: Yes Assistive Devices: Cane Review of Systems Review of Systems: All systems reviewed & are unremarkable except as noted in HPI & below Physical Exam Physical Exam: Deferred to limit staff exposure to COVID-19 Results & Data ([facility]) Vital Signs (Past 12 Hours) Vital Signs Temp Pulse Pulse Resp BP Pulse Ox 10/14/21 08:04 36.6 C 67 16 137/60 96 10/14/21 03:15 36.5 C 63 18 115/58 L 98 10/14/21 00:06 36.4 C L 62 18 137/70 99 10/13/21 23:45 63
[2021-10-14 12:54] LABS: Phosphorus 2.9 mg/dl (2.5-4.9); Troponin I 0.776 ng/ml (0-0.045)
[2021-10-14 13:37] LABS: Appearance Urine Clear (Clear); Bacteria Urine Automated Negative (Negative); Bilirubin Urine Negative (Negative); Blood Urine Negative (Negative); Cast Urine Automated 0 /lpf (0-5); Color Urine Yellow; Epithelial Cell Urine Auto >30 /lpf (0-5); Glucose Urine UA Negative (Negative); Ketones Urine Negative (Negative); Leukocyte Esterase Urine 3+ (Negative); Nitrite Urine Negative (Negative); Protein Urine Negative (Negative); RBC Urine Automated 0-4 /hpf (0-4); Specific Gravity Urine 1.008 (1.000-1.030); Urobilinogen Urine Negative (Negative); WBC Urine Automated >30 /hpf (0-5); pH Urine 6.5 (4.5-7.5)
--- NOTE | 2021-10-14 14:38 | XRay Report ---
XR chest 1V portable HISTORY: Covid positive. chest discomfort COMPARISON: Chest 10/13/2021. FINDINGS: The lungs are clear. Cardiac silhouette is normal in size. No pleural effusions. No pneumot horax. IMPRESSION: No acute process. ACT 112: Negative or not required by law. Electronically signed by: Lam Martinez M.D. 10/14/2021 2:37 PM
--- NOTE | 2021-10-14 16:48 | Electrocardiogram Report ---
Test Reason : Blood Pressure : / mmHG Vent. Rate : 068 BPM Atrial Rate : 068 BPM P-R Int : 166 ms QRS Dur : 160 ms QT Int : 464 ms P-R-T Axes : 063 -17 128 degrees QTc Int : 493 ms Normal sinus rhythm Left bundle branch block Abnormal ECG When compared with ECG of 14-OCT-2021 08:00, No significant change was found Confirmed by Josesito Crowe ([id number]) on 10/14/2021 4:48:24 PM Referred By: REFERRED SELF Confirmed By:Genaro Crowe
[2021-10-15 06:13] LABS: Hematocrit (blood only) 29.1 % (37-47); Hemoglobin 9.8 g/dL (12.0-16.0); Mean Corpuscular Hemoglobin 29.8 pg (25-34); Mean Corpuscular Hgb Conc 33.7 g/dL (32-36); Mean Corpuscular Volume 88.4 fL (80-100); Mean Platelet Volume 9.6 fL (7.4-10.4); Platelet Count 157 K/uL (130-400); RDW Coefficient of Variation 12.7 % (11.5-14.5); RDW Standard Deviation 41.3 fL (36.4-46.3); Red Blood Count 3.29 M/uL (4.2-5.4); White Blood Count 2.74 K/uL (4.8-10.8)
[2021-10-15 06:50] LABS: Albumin Level 2.9 gm/dl (3.4-5.0); Calcium 8.9 mg/dl (8.5-10.1); Creatinine Clr Calc Pharmacy 33.5 ml/min; Est GFR (Non-African American) 34.5 ml/min; Potassium 4.3 mmol/L (3.5-5.1)
[2021-10-15 06:57] LABS: Albumin Globulin Ratio 0.9 (0.9-2); Bilirubin,Total 0.3 mg/dl (0.2-1); Globulin 3.4 gm/dl (2.5-4.0); Total Protein 6.3 gm/dl (6.4-8.2)
[2021-10-15] MEDS: POTASSIUM CITRATE 10 MEQ TAB PO SCH (08:10)
[2021-10-15] MEDS: ASPIRIN 81 MG ECTAB PO SCH (08:10)
[2021-10-15] MEDS: LOVASTATIN 20 MG TAB PO SCH (08:11)
--- NOTE | 2021-10-15 11:48 | Cardiology Progress Note ---
Date of Service October 15, 2021 Assessment & Plan (1) Cardiomyopathy: (2) COVID-19: (3) Elevated troponin: (4) Diarrhea: (5) Syncope: (6) Hypertension: (7) Hyperlipidemia: Plan: Again the results of the echocardiogram were reviewed with the patient and her daughter by phone. Given her lack of cardiac symptoms and the fact that her minimal troponin elevation is already trending downwards I do not believe this new finding of cardiomyopathy represents an acute ischemic event. The apical ballooning pattern on echocardiogram is highly suggestive of catecholamine induced cardiomyopathy which would fit the clinical picture of several days to weeks of illness and diarrhea. I believe the most prudent course of action at this point would be to hold off on further cardiac testing, cardiac catheterization contraindicated in the setting of active COVID-19 infection and lack of acute symptoms. Recommend maintaining current medications, ideally would like to add beta- wero, however, her relative bradycardia/hypotension would preclude this at this time. Would recommend repeat echocardiogram as an outpatient in 1 month and follow-up with cardiology afterwards. Okay to discharge from a cardiac standpoint. Admission and Anticipated Discharge Date Admission Date: October 13, 2021 Subjective Spoke with patient by phone, confirmed no chest discomfort or shortness of breath recently or at any time that she can remember. Notes that her diarrhea is improving and her strength seems to be little bit better today. I also called her daughter at the patient's request, Margarita Ayala, and updated her on the results of the echocardiogram. Review of Systems Review of Systems: All systems reviewed & are unremarkable except as noted in HPI & below Results & Data ([facility]) Vital Signs (Past 12 Hours) Vital Signs Temp Pulse Pulse Resp BP BP Pulse Ox 10/15/21 08:00 36.7 C 69 18 111/65 94 10/15/21 06:19 67 10/15/21 04:13 65 10/15/21 03:16 36.7 C 69 18 94/50 L 97
--- NOTE | 2021-10-15 13:15 | Hospitalist Progress Note ---
Date of Service October 15, 2021 Assessment & Plan (1) Syncope: (2) Diarrhea: (3) Elevated troponin: (4) COVID-19: Plan: This is an 81 yo female who presents with syncope (had diarrhea), JEANNE, and was found to be COVID positive, and have elev. troponin. 1. Syncope: The patient has a history of vasovagal syncope . Possibly related to diarrhea from last . Check orthostatics. Received fluids. Monitor in the tele. Initial troponin in ED negative however troponin this morning 0.8 Repeat troponin Pt has hx of LBBB Will get echocardiogram. Patient reports no chest pain, will further discuss with cardiology 2. COVID-19: The patient is vaccinated with [employer] One, two doses, last dose in January. Currently, asymptomatic except for diarrhea and weakness. She is saturating well on RA. Does not meet any criteria for any treatment. Will monitor. 3. Acute kidney injury on chronic kidney disease stage III: Baseline creatinine 1.4-1.5 On admission, creatinine of 1.8. Now improved after IVF. Holding lisinopril/hydrochlorothiazide. Monitor renal function. 4. Anemia Admission hemoglobin above 12, now hemoglobin 9.6 Possibly dilutional We will repeat H&H Obtain FOBT, patient denies any blood in the stool Continue to closely monitor 5. Diarrhea -Patient had diarrhea on , then she says it improved, and then had episode again yesterday, during that episode patient syncopized - obtain stool study and c.diff -No bowel movement since being in the hospital 6. Hyperlipidemia: Continue statin. 7. Hypertension: Holding lisinopril/hydrochlorothiazide. Will place on IV hydralazine for now. DVT prophylaxis: Lovenox. DISPOSITION: Monitor in the med tele. PT/OT prior to discharge. Social service to help with discharge planning. Full code. Admission and Anticipated Discharge Date Admission Date: October 13, 2021 Results & Data Results & Data ([facility]) Vital Signs (Past 12 Hours) Vital Signs Temp Pulse Pulse Resp BP BP Pulse Ox 10/15/21 12:00 36.8 C 67 18 123/68 96 10/15/21 08:00 36.7 C 69 18 111/65 94 10/15/21 06:19 67 10/15/21 04:13 65 10/15/21 03:16 36.7 C 69 18 94/50 L 97 Laboratory Results Short CBC 10/15/21 Range/Units 05:57 WBC 2.74 L (4.8-10.8) K/uL Hgb 9.8 L (12.0-16.0) g/dL Hct 29.1 L (37-47) % Plt Count 157 (130-400) K/uL BMP 10/15/21 05:57 Sodium 139 Potassium 4.3 Chloride 108 H Carbon Dioxide 28 BUN 27 H Creatinine 1.43 H Glucose 104 H Calcium 8.9 Liver Function 10/15/21 Range/Units 05:57 Total Bilirubin 0.3 (0.2-1) mg/dl AST 27 (15-37) U/L ALT 17 (12-78) Alkaline Phosphatase 67 (45-117) U/L Albumin 2.9 L (3.4-5.0) gm/dl Urine 10/14/21 Range/Units 13:24 Urine Color Yellow Urine Appearance Clear (Clear) Urine pH 6.5 (4.5-7.5) Ur Specific [place] 1.008 (1.000-1.030) Urine Protein Negative (Negative) Urine Glucose (UA) Negative (Negative) Medications Administered Current Inpatient Medications Acetaminophen (Acetaminophen 325 Mg Tab) 650 mg PO Q4H PRN PRN Reason: Pain or Fever Stop: 11/12/21 23:28 Last Admin: 10/14/21 13:45 Dose: 650 mg Documented by: Aspirin (Aspirin 81 Mg Ectab) 81 mg PO DAILY [facility] Stop: 11/13/21 08:59 Last Admin: 10/15/21 08:10 Dose: 81 mg Documented by: Enoxaparin Sodium (Enoxaparin Inj 30 Mg/0.3 Ml Syr) 30 mg SQ HS [facility] Stop: 11/12/21 23:44 Last Admin: 10/14/21 20:16 Dose: 30 mg Documented by: Hydralazine HCl (Hydralazine Hcl 20 Mg/Ml Vial) 5 mg IV Q6H PRN PRN Reason: Hypertension Stop: 11/12/21 23:28 Lovastatin (Lovastatin 20 Mg Tab) 40 mg PO DAILY [facility] Stop: 11/13/21 08:59 Last Admin: 10/15/21 08:11 Dose: 40 mg Documented by: Nitroglycerin (Nitroglycerin Sl 0.4 Mg/Tab Tab) 0.4 mg SL UD PRN PRN Reason: Chest Pain Stop: 11/12/21 23:28 Ondansetron HCl (Ondansetron Inj 2 Mg/Ml 2 Ml Vial) 4 mg IV Q6H PRN PRN Reason: Nausea Stop: 11/12/21 23:28 Potassium Citrate (Potassium Citrate 10 Meq Tab) 20 meq PO DAILY [facility] Stop: 11/13/21 08:59 Last Admin: 10/15/21 08:10 Dose: 20 meq Documented by:
--- NOTE | 2021-10-15 16:03 | Discharge Summary ---
Date of Service October 15, 2021 Admission HPI Per Admitting Provider HISTORY OF PRESENT ILLNESS: This is an 81-year-old female with past medical history significant for hyperlipidemia, hypertension, left bundle-branch block, chronic kidney disease stage III, history of TIA, history of vasovagal near syncope, who presents with episode of syncope. The patient is having diarrhea since last . Since last Thursday, he is having some cough and appetite is down. Denies any chest pain, no shortness of breath. She was going to bathroom today and she fell down, she does not know how long she stayed there, but when she woke up, she was alert and awake, not confused. Son lives with her. After the incident she started feeling very weak and tired, nauseous and dizzy, so she came to the ER. Here, her COVID came back positive. She is vaccinated twice with [facility], last dose was in January. Creatinine is 1.8, baseline is 1.4-1.5. She is afebrile, saturating okay. Chest x-ray was okay. Denies any headache. No blurred visions. Currently, no earache. Some mild runny nose, mild sore throat, no difficulty swallowing. No chest pain, no shortness of breath, no abdominal pain. Normal bladder movements. No swelling in the legs, no rash. Admission Exam Per Admitting Provider PHYSICAL EXAMINATION: GENERAL: The patient is of moderate build, not in acute distress. VITAL SIGNS: Temperature 36.8, pulse 68, respiratory rate 17, blood pressure 161/65, oxygen 96% on room air. HEENT: Pupils equal, round and reactive to light. Oral mucosa moist. NECK: No JVD, no neck masses. CARDIOVASCULAR: S1 and S2 heard. Regular rate and rhythm. No murmur, no gallop. RESPIRATORY SYSTEM: Normal AP diameter. No accessory muscle use. No wheezing, no crackles. ABDOMEN: Soft, bowel sounds present, nontender, no distention. CENTRAL NERVOUS SYSTEM: Cranial nerves II-XII grossly intact, nonfocal. EXTREMITIES: No edema, no erythema. Principal Diagnosis syncope covid-19 infection cardiomyopathy elevated troponin Acute kidney injury in setting of CKD III Discharge Exam CONSTITUTIONAL: WNWD, vitals as above, generally well-appearing, NAD EYES: normal conjunctivae, no scleral icterus ENT: external ear and nose normal, MMM NECK: trachea midline RESPIRATORY: clear to auscultation bilaterally, no crackles, rales or wheezes, normal respiratory effort CARDIOVASCULAR: regular rate and rhythm, S1 and 2 heard without murmurs, gallops or rubs, no JVD, no peripheral edema GASTROINTESTINAL: soft, nontender, ND, no guarding MUSCULOSKELETAL: strength 5/5 throughout, head is normocephalic and atraumatic SKIN: warm and dry NEUROLOGIC: CN 2-12 grossly intact, no sensory deficit, normal cognition, normal speech, no tremor, no gross focal deficit. PSYCHIATRIC: alert cooperative and oriented to person, place and time. Discharge Data Allergies Allergy/AdvReac Type Severity Reaction Status Date / Time No Known Allergies Allergy Unknown Verified 10/13/21 18:42 Consultations 10/13/21 21:00 ED Decision to Admit Stat 10/14/21 08:00 Consult Cardiology Routine Ordered Studies Laboratory Results WBC 2.74 K/uL (4.8-10.8) L 10/15/21 05:57 RBC 3.29 M/uL (4.2-5.4) L 10/15/21 05:57 Hgb 9.8 g/dL (12.0-16.0) L 10/15/21 05:57 Hct 29.1 % (37-47) L 10/15/21 05:57 MCV 88.4 fL (80-100) 10/15/21 05:57 MCH 29.8 pg (25-34) 10/15/21 05:57 MCHC 33.7 g/dL (32-36) 10/15/21 05:57 RDW Std Deviation 41.3 fL (36.4-46.3) 10/15/21 05:57 RDW Coeff of Samra 12.7 % (11.5-14.5) 10/15/21 05:57 Plt Count 157 K/uL (130-400) 10/15/21 05:57 MPV 9.6 fL (7.4-10.4) 10/15/21 05:57 Immature Gran % (Auto) 0.4 % 10/14/21 05:30 Neut % (Auto) 47.2 % 10/14/21 05:30 Lymph % (Auto) 35.2 % 10/14/21 05:30 [place] % (Auto) 14.6 % 10/14/21 05:30 Eos % (Auto) 2.2 % 10/14/21 05:30 Baso % (Auto) 0.4 % 10/14/21 05:30 Neut # (Auto) 1.26 K/uL (1.4-6.5) L 10/14/21 05:30 Lymph # (Auto) 0.94 K/uL (1.2-3.4) L 10/14/21 05:30 [place] # (Auto) 0.39 K/uL (0.11-0.59) 10/14/21 05:30 Eos # (Auto) 0.06 K/uL (0-0.5) 10/14/21 05:30 Baso # (Auto) 0.01 K/uL (0-0.2) 10/14/21 05:30 Immature Gran # (Auto) 0.01 K/uL (0.00-0.02) 10/14/21 05:30 Sodium 139 mmol/L (136-145) 10/15/21 05:57 Potassium 4.3 mmol/L (3.5-5.1) 10/15/21 05:57 Chloride 108 mmol/L (98-107) H 10/15/21 05:57 Carbon Dioxide 28 mmol/L (21-32) 10/15/21 05:57 Anion Gap 3.0 (3-11) 10/15/21 05:57 BUN 27 mg/dl (7-18) H 10/15/21 05:57 Creatinine 1.43 mg/dl (0.6-1.2) H 10/15/21 05:57 Est Cr Clr Drug Dosing 33.5 ml/min 10/15/21 05:57 Est GFR ( Amer) 40.0 ml/min 10/15/21 05:57 Est GFR (Non-Af Amer) 34.5 ml/min 10/15/21 05:57 BUN/Creatinine Ratio 19.0 (10-20) 10/15/21 05:57 Glucose 104 mg/dl (70-99) H 10/15/21 05:57 Lactate 0.7 mmol/L (0.4-2.0) 10/13/21 19:05 Calcium 8.9 mg/dl (8.5-10.1) 10/15/21 05:57 Phosphorus 3.0 mg/dl (2.5-4.9) 10/15/21 05:57 Magnesium 2.0 mg/dl (1.8-2.4) 10/15/21 05:57 Total Bilirubin 0.3 mg/dl (0.2-1) 10/15/21 05:57 AST 27 U/L (15-37) 10/15/21 05:57 ALT 17 (12-78) 10/15/21 05:57 Alkaline Phosphatase 67 U/L (45-117) 10/15/21 05:57 Troponin I 0.776 ng/ml (0-0.045) H* 10/14/21 12:03 Total Protein 6.3 gm/dl (6.4-8.2) L D 10/15/21 05:57 Albumin 2.9 gm/dl (3.4-5.0) L 10/15/21 05:57 Globulin 3.4 gm/dl (2.5-4.0) 10/15/21 05:57 Albumin/Globulin Ratio 0.9 (0.9-2) 10/15/21 05:57 Urine Color Yellow 10/14/21 13:24 Urine Appearance Clear (Clear) 10/14/21 13:24 Urine pH 6.5 (4.5-7.5) 10/14/21 13:24 Ur [address] [place] 1.008 (1.000-1.030) 10/14/21 13:24 Urine Protein Negative (Negative) 10/14/21 13:24 Urine Glucose (UA) Negative (Negative) 10/14/21 13:24 Urine Ketones Negative (Negative) 10/14/21 13:24 Urine Blood Negative (Negative) 10/14/21 13:24 Urine Nitrite Negative (Negative) 10/14/21 13:24 Urine Bilirubin Negative (Negative) 10/14/21 13:24 Urine Urobilinogen Negative (Negative) 10/14/21 13:24 Ur Leukocyte Esterase 3+ (Negative) H 10/14/21 13:24 Urine WBC (Auto) >30 /hpf (0-5) H 10/14/21 13:24 Urine RBC (Auto) 0-4 /hpf (0-4) 10/14/21 13:24 U Hyaline Cast (Auto) 0 /lpf (0-5) 10/14/21 13:24 U Epithel Cells (Auto) >30 /lpf (0-5) H 10/14/21 13:24 Urine Bacteria (Auto) Negative (Negative) 10/14/21 13:24 SARS-CoV-2 (PCR) POSITIVE (Negative) A* 10/13/21 18:40 Influenza Type A (PCR) Negative (Neg) 10/13/21 18:40 Influenza Type B (PCR) Negative (Neg) 10/13/21 18:40 RSV (RT-PCR) Negative (Neg) 10/13/21 18:40 Impressions Chest X-Ray 10/14/21 13:39 XR chest 1V portable HISTORY: Covid positive. chest discomfort COMPARISON: Chest 10/13/2021. FINDINGS: The lungs are clear. Cardiac silhouette is normal in size. No pleural effusions. No pneumothorax. IMPRESSION: No acute process. ACT 112: Negative or not required by law. Electronically signed by: Lam Martinez M.D. 10/14/2021 2:37 PM Hospital Course (1) Syncope: (2) Diarrhea: (3) Elevated troponin: (4) COVID-19: (5) Cardiomyopathy: (6) Acute worsening of stage 3 chronic kidney disease: (7) Anemia: 81-year-old female presented to the hospital with syncope. Found to be Covid positive with an elevated troponin and had recent bout of diarrhea likely related to COVID-19 infection. Patient was vaccinated and did not require any Covid specific therapies while she was admitted. She did have an acute kidney injury with an elevated creatinine of 1.8 likely related to dehydration from diarrhea which was resolved to her baseline creatinine at time of discharge. As a result of her syncopal event and elevated troponin she underwent an echocardiogram. There were no previous studies available for comparison. She had gradual apical ballooning pattern and a reduced LV systolic function with an ejection fraction 35 to 40%. 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 Cardiology was formally consulted and given the lack of cardiac symptoms and the fact that her minimal troponin elevation was trending downwards her new finding of cardiomyopathy was not felt to represent an acute ischemic event. The apical ballooning pattern on echocardiogram was highly suggestive of catecholamine induced cardiomyopathy which would fit the clinical picture of several days to weeks of illness and diarrhea. Further cardiac testing, cardiac catheterization was deferred in the setting of active COVID-19 infection and lack of acute symptoms. She was continued on current medical therapy including lisinopril and a beta-wero for guideline directed medical therapy was preferred but relative hypotension and bradycardia prevented this from being added at discharge. Repeat echocardiogram and outpatient follow-up with cardiology in 1 month was recommended. Patient verbalized understanding with intent to comply. I also discussed the plan with her daughter Margarita by phone. At time of discharge she was mentating and ambulating at baseline and tolerating p.o. She was hemodynamically stable and had complete resolution of her diarrhea for the past 5 days. Close primary care follow-up was recommended. Notably her H/H was stable but decreased to 9.8/29.1. Outpatient repeat check and further investigation into her anemia as outpatient is recommended. Total Time Total Time Spent Total Time Spent (In Minutes): 60 Discharge Plan Discharge Items Patient Disposition: Home - Self-Care Reason For Visit: ILLNESS Discharge Diagnosis: syncope covid-19 infection cardiomyopathy elevated troponin Acute kidney injury in setting of CKD III anemia Condition on Discharge: Good Activity: Resume your previous activity Non-emergency contact: Primary Care Provider Call non-emergency contact if: you have any medication questions, your symptoms worsen, your pain is not controlled, your pain is worsening and your pain is unusual for you Follow-up/Referrals: Alissa Deluca PA-C [Primary Care Provider] - (Date & Time 10/25/2021 10:00 AM Provider Alissa Deluca PA-C Department Family Practice [facility] ) Diet: Heart Healthy Addtl Attending Provider Instructions: Please take all medications as instructed on discharge as below. It is recommended that you undergo a repeat echocardiogram as outpatient in 1 month and follow-up with the [facility] Cardiology group after this. They are located at the [facility] location. Please follow up with your primary care provider at the date and time above to ensure this echocardiogram is ordered and for help wtih your referral to cardiology. Notably, a betablocker is preferred to add to your medication regimen to help you heart recover. However, when you were discharged from the hospital low blood pressure and a low heart rate prevented this from being given. This may be added at your follow-up visit. You were found to have anemia during your stay in the hospital. Please continue with an outpatient recheck of blood work (CBC at primary care followup above) and outpatient investigation into this as necessary. Please remain on home isolation until you are 10 days post symptom onset for COVID-19 infection. After this time please ensure you wear a mask in public and are abiding by all social distancing protocols per public health guidance. It was a pleasure taking care of you! Please call if you have any questions or problems. You can reach a [facility] hospitalist on duty at [facility] 24 hours a day by calling [phone]. Take care of yourself. Aniyah Boyd, DO [facility] Hospitalist Addtl Scanning Coordinator Provider Instructions: Home Isolation COVID-19 Instructions The following information about Home Isolation is from the CDC Website: https://www.cdc.gov/coronavirus/2019-ncov/hcp/ylwgytqm-aeajyfh-nkdedy.html Stay home except to get medical care People who are mildly ill with COVID-19 are able to isolate at home during their illness. You should restrict activities outside your home, except for getting medical care. Do not go to work, school, or public areas. Avoid using public transportation, ride-sharing, or taxis. Separate yourself from other people and animals in your home People: As much as possible, you should stay in a specific room and away from other people in your home. Also, you should use a separate bathroom, if available. Animals: You should restrict contact with pets and other animals while you are sick with COVID-19, just like you would around other people. Although there have not been reports of pets or other animals becoming sick with COVID-19, it is still recommended that people sick with COVID-19 limit contact with animals until more information is known about the virus. When possible, have another member of your household care for your animals while you are sick. If you are sick with COVID-19, avoid contact with your pet, including petting, snuggling, being kissed or licked, and sharing food. If you must care for your pet or be around animals while you are sick, wash your hands before and after you interact with pets and wear a face mask. Call ahead before visiting your doctor If you have a medical appointment, call the healthcare provider and tell them that you have or may have COVID-19. This will help the healthcare providers office take steps to keep other people from getting infected or exposed. Wear a face mask You should wear a face mask when you are around other people (e.g., sharing a room or vehicle) or pets and before you enter a healthcare providers office. If you are not able to wear a face mask (for example, because it causes trouble breathing), then people who live with you should not stay in the same room with you, or they should wear a face mask if they enter your room. Cover your coughs and sneezes Cover your mouth and nose with a tissue when you cough or sneeze. Throw used tissues in a lined trash can. Immediately wash your hands with soap and water for at least 20 seconds or, if soap and water are not available, clean your hands with an alcohol-based hand bisque kiln drawer that contains at least 60% alcohol. Clean your hands often Wash your hands often with soap and water for at least 20 seconds, especially after blowing your nose, coughing, or sneezing; going to the bathroom; and before eating or preparing food. If soap and water are not readily available, use an alcohol-based hand bisque kiln drawer with at least 60% alcohol, covering all surfaces of your hands and rubbing them together until they feel dry. Soap and water are the best option if hands are visibly dirty. Avoid touching your eyes, nose, and mouth with unwashed hands. Avoid sharing personal household items You should not share dishes, drinking glasses, cups, eating utensils, towels, or bedding with other people or pets in your home. After using these items, they should be washed thoroughly with soap and water. Clean all high-touch surfaces everyday High touch surfaces include counters, tabletops, doorknobs, bathroom fixtures, toilets, phones, keyboards, tablets, and bedside tables. Also, clean any surfaces that may have blood, stool, or body fluids on them. Use a household cleaning spray or wipe, according to the label instructions. Labels contain instructions for safe and effective use of the cleaning product including precautions you should take when applying the product, such as wearing gloves and making sure you have good ventilation during use of the product. Monitor your symptoms Seek prompt medical attention if your illness is worsening (e.g., difficulty breathing).Beforeseeking care, call your healthcare provider and tell them that you have, or are being evaluated for, COVID-19. Put on a face mask before you enter the facility. These steps will help the healthcare providers office to keep other people in the office or waiting room from getting infected or exposed. Ask your healthcare provider to call the local or state health department. Persons who are placed under active monitoring or facilitated self- monitoring should follow instructions provided by their local health department or occupational health professionals, as appropriate. When working with your local health department check their available hours. If you have a medical emergency and need to call 911, notify the dispatch personnel that you have, or are being evaluated for COVID-19. If possible, put on a face mask before emergency medical services arrive. Discontinuing home isolation Patients with confirmed COVID-19 should remain under home isolation precautions until the risk of secondary transmission to others is thought to be low. The decision to discontinue home isolation precautions should be made on a [id number] basis, in consultation with healthcare providers and [facility] and [facility] health departments. Pending Studies at Discharge: No Stand-Alone Forms: My [facility] Medications and DC Order Prescriptions: Continued lovastatin 40 mg tablet 40 mg PO DAILY RF: 0 potassium citrate 10 mEq (1,080 mg) tablet extended release 20 meq PO DAILY RF: 0 lisinopril-hydrochlorothiazide 10-12.5 mg tablet 1 tab PO DAILY RF: 0 aspirin [Aspirin Low Dose] 81 mg Tablet,Delayed Release (Dr/Ec) 81 mg PO DAILY RF: 0 Discharge Orders: Discharge Order (Routine); Ordered 10/15/21 Ordered By: Aniyah Boyd Admission Data Admit Date/Time: 10/13/21 22:02 Attending Provider: Aniyah Boyd Admit Provider: Nimesh Yepez Primary Care Provider: Alissa Deluca Other Providers: Nimesh Yepez ; Romero Carrillo
--- NOTE | 2021-10-15 17:52 | Electrocardiogram Report ---
Test Reason : Blood Pressure : / mmHG Vent. Rate : 068 BPM Atrial Rate : 068 BPM P-R Int : 176 ms QRS Dur : 152 ms QT Int : 516 ms P-R-T Axes : 054 -23 138 degrees QTc Int : 548 ms Normal sinus rhythm Left bundle branch block Abnormal ECG When compared with ECG of 14-OCT-2021 13:58, T wave inversion more evident in Anterior leads QT has lengthened Confirmed by Josesito Crowe ([id number]) on 10/15/2021 5:52:27 PM Referred By: REFERRED SELF Confirmed By:Genaro Crowe
== END 2021-10-15 17:07 | disposition home or self-care (01) | DRG 312 ==
LOC: ED 17:44 → 2W 22:02 → SUATTDRO 22:02 → 2W 22:58